=== PATIENT | female | born 1945 | race Caucasian/White ===

== ENCOUNTER 2016-07-27 14:32 | Inpatient (IN) | payer OTHER, MEDICARE ==
[~2016-07-27] VITALS: Ht 154.9 cm; Wt 65.3 kg
[~2016-07-27 14:32] MED LIST: BG MC; COL100 PO; DIL2 PO; DURAGESIC100 MCG/HR TOP; GABAPENTIN400 M1 PO; HEP5I SC; HYDROMORPHONE PO; LAC PO; LEVAQUIN750 MG PO; MAC100 PO; MAG PO; MIANS; NEURONTIN400 MG PO; PRI20 PO; ROB750 PO; RXMED TOP; TPN PER PHARMACY MC; VITAMIN D2 PO; ZITHROMAX Z-PA250 M2 PO; ZOFI IV; [UNRECOGNIZED DRUG - CODE] TOP
[2016-07-27] MEDS ORDERED: HYDROMORPHONE HC8 M1 PO (15:46)
[2016-07-27] MEDS ORDERED: GABAPENTIN400 M1 PO (15:46)
[2016-07-27] MEDS ORDERED: DURAGESIC100 MCG/HR TOP (15:47)
[2016-07-27 15:48] LABS: BASOPHIL % 2.2 % (0-2); PLATELET COUNT 159 x10^3mcL (130-400); RED CELL DISTRIBUTION WIDTH 17.3 % (11.5-14.5)
[2016-07-27 15:53] LABS: CALCIUM 8.2 mg/dL (8.5-10.1); CARBON DIOXIDE 29.1 mmol/L (21-32); CREATININE SERUM 1.2 mg/dL (0.6-1.0); POTASSIUM SERUM 3.3 mmol/L (3.5-5.1)
[2016-07-27 16:08] LABS: ALBUMIN 2.3 g/dL (3.4-5.0); BILIRUBIN TOTAL 0.6 mg/dL (0.20-1.00); MAGNESIUM 1.7 mg/dL (1.8-2.4); TOTAL PROTEIN, SERUM 5.9 g/dL (6.4-8.2)
[2016-07-27 16:13] LABS: UA SPECIFIC GRAVITY <=1.005 (1.005-1.035); microscopic required? YES; urine erythrocyte NEGATIVE (NEGATIVE)
[2016-07-27 16:38] LABS: CK-MB < 0.5 ng/mL (0-3.6); CREATINE KINASE 35 U/L (26-192)
[2016-07-27 17:38] VITALS: BP 112/63
[2016-07-27 17:47] LABS: PHOSPHOROUS 2.4 mg/dL (2.5-4.9)
[2016-07-27 17:48] LABS: CHOLESTEROL/HDL RATIO 2.7
[2016-07-27 17:58] LABS: FREE T4 1.14 ng/dL (0.76-1.46); FREE THYROXINE INDEX 2.3 ug/dL (1.4-4.5); T3 TOTAL 0.66 ng/mL; T4(THYROXINE) 6.7 ug/dL (4.7-13.3)
[2016-07-27 20:12] VITALS: BP 108/60
[2016-07-27 23:17] VITALS: BP 99/54
[2016-07-27 23:44] VITALS: BP 70/30
[2016-07-28] VITALS (7 sets, daily range): BP systolic 88–130; BP diastolic 53–74; Ht 154.9 cm; Wt 65.3 kg
[2016-07-28 04:55] LABS: RED BLOOD CELLS 2.5 M/mm3 (4.10-5.10)
[2016-07-28 04:56] LABS: BASOPHIL % 0.2 % (0-2)
[2016-07-28 04:57] LABS: PLATELET COUNT 105 x10^3mcL (130-400); RED CELL DISTRIBUTION WIDTH 17.3 % (11.5-14.5)
[2016-07-28 05:03] LABS: CALCIUM 6.6 mg/dL (8.5-10.1); CARBON DIOXIDE 23.6 mmol/L (21-32); CHLORIDE SERUM 107 mmol/L (98-107); CREATININE SERUM 0.9 mg/dL (0.6-1.0); GFR1 > 60 mL/min; GLUCOSE SERUM 87 mg/dL (74-106); IRON 7 ug/dL (50-170); MAGNESIUM 1.3 mg/dL (1.8-2.4); PHOSPHOROUS 2.1 mg/dL (2.5-4.9); POTASSIUM SERUM 3.7 mmol/L (3.5-5.1); SODIUM SERUM 139 mmol/L (136-145); TOTAL IRON BINDING CAPACITY 131 ug/dL (250-450)
[2016-07-28 05:20] LABS: rbc morphology (normal/abnorm) ABNORMAL (NORMAL); target cell (codocyte) 2+
[2016-07-29 03:02] VITALS: BP 89/52
[2016-07-29 05:26] LABS: BASOPHIL % 0.5 % (0-2); PLATELET COUNT 135 x10^3mcL (130-400)
[2016-07-29 05:33] LABS: RED CELL DISTRIBUTION WIDTH 17.9 % (11.5-14.5)
[2016-07-29 06:07] LABS: CALCIUM 7.9 mg/dL (8.5-10.1); CHLORIDE SERUM 106 mmol/L (98-107); CREATININE SERUM 0.9 mg/dL (0.6-1.0); GFR1 > 60 mL/min; GLUCOSE SERUM 98 mg/dL (74-106); PHOSPHOROUS 2.2 mg/dL (2.5-4.9); POTASSIUM SERUM 4.2 mmol/L (3.5-5.1); SODIUM SERUM 137 mmol/L (136-145)
[2016-07-29 07:20] VITALS: BP 110/67
[2016-07-29 11:15] VITALS: BP 125/74
[2016-07-29 18:20] VITALS: BP 128/58
[2016-07-29 20:40] VITALS: BP 134/75
[2016-07-30 06:12] VITALS: BP 102/54
[2016-07-30 09:49] VITALS: BP 123/66
[2016-07-30 11:29] LABS: PLATELET COUNT 179 x10^3mcL (130-400)
[2016-07-30 11:30] LABS: BASOPHIL % 0 % (0-2); RED CELL DISTRIBUTION WIDTH 17.8 % (11.5-14.5)
[2016-07-30 12:02] LABS: CALCIUM 8.2 mg/dL (8.5-10.1); CHLORIDE SERUM 106 mmol/L (98-107); CREATININE SERUM 0.9 mg/dL (0.6-1.0); GFR1 > 60 mL/min; GLUCOSE SERUM 103 mg/dL (74-106); POTASSIUM SERUM 4.4 mmol/L (3.5-5.1); SODIUM SERUM 138 mmol/L (136-145)
[2016-07-30 12:10] LABS: ALBUMIN 2.5 g/dL (3.4-5.0)
[2016-07-30 13:13] VITALS: BP 113/56
[2016-07-30] MEDS ORDERED: LEVAQUIN750 MG PO (16:50)
[2016-07-30] MEDS ORDERED: LAC PO (16:51)
[2016-07-30 17:13] VITALS: BP 113/56
== END 2016-07-30 19:50 | disposition home health service (06) | DRG 871 ==
LOC: ED 14:32 → MU 16:35 → IC 16:35 → DU 07-29 15:05 → MU 07-30 06:45
PROVIDERS: Emergency Medicine; Family Medicine; ADMIT Family Medicine
DX: A41.9 Sepsis, unspecified organism (principal); E43 Unspecified severe protein-calorie malnutrition; I50.43 Acute on chronic combined systolic (congestive) and diastolic (congestive) heart failure; R65.21 Severe sepsis with septic shock; N17.0 Acute kidney failure with tubular necrosis; L89.154 Pressure ulcer of sacral region, stage 4; N39.0 Urinary tract infection, site not specified; I89.0 Lymphedema, not elsewhere classified; G62.9 Polyneuropathy, unspecified; Z68.24 Body mass index [BMI] 24.0-24.9, adult; Z85.830 Personal history of malignant neoplasm of bone; Z85.41 Personal history of malignant neoplasm of cervix uteri; Z93.3 Colostomy status; Z93.6 Other artificial openings of urinary tract status; Z92.21 Personal history of antineoplastic chemotherapy; Z92.3 Personal history of irradiation; Z98.1 Arthrodesis status
CPT/HCPCS: 36600; 83880; 84439; 97110-GP; J1956; J3475; J3490; J7030; J7040; J7060; Q0092

== ENCOUNTER 2017-04-20 10:38 | Inpatient (IN) | payer OTHER, MEDICARE ==
[~2017-04-20] VITALS: Ht 162.6 cm; Wt 60.0 kg
[~2017-04-20 10:38] MED LIST changes: +HYDROMORPHONE HC8 M1 PO
[2017-04-20 10:46] VITALS: Ht 162.6 cm; Wt 60.0 kg
[2017-04-20 11:24] LABS: CALCIUM 9.1 mg/dL (8.5-10.1); CARBON DIOXIDE 26.1 mmol/L (21-32); CREATININE SERUM 1.1 mg/dL (0.6-1.0); POTASSIUM SERUM 3.7 mmol/L (3.5-5.1)
[2017-04-20 11:28] LABS: BILIRUBIN TOTAL 0.59 mg/dL (0.20-1.00); TOTAL PROTEIN, SERUM 6.9 g/dL (6.4-8.2)
[2017-04-20 11:29] LABS: ALBUMIN 3.2 g/dL (3.4-5.0); BASOPHIL % 0.1 % (0-2); PLATELET COUNT 138 x10^3mcL (130-400)
[2017-04-20 11:58] LABS: RED CELL DISTRIBUTION WIDTH 14.9 % (11.5-14.5)
[2017-04-20 13:31] LABS: UA SPECIFIC GRAVITY <=1.005 (1.005-1.035); microscopic required? YES; urine erythrocyte NEGATIVE (NEGATIVE)
[2017-04-20 14:29] VITALS: BP 79/37
[2017-04-20 14:45] VITALS: BP 84/46
[2017-04-20] MEDS ORDERED: NEURONTIN400 MG PO (15:24)
[2017-04-20 15:43] VITALS: BP 65/37
[2017-04-20 16:11] LABS: MAGNESIUM 1.6 mg/dL (1.8-2.4); PHOSPHOROUS 2.6 mg/dL (2.5-4.9)
[2017-04-20 16:19] LABS: CHOLESTEROL/HDL RATIO 2.6
[2017-04-20 17:25] LABS: T3 TOTAL 0.69 ng/mL
[2017-04-20 18:46] LABS: AMPHETAMINE QUAL UR NONE DETECTED (NEG <=1000)
[2017-04-20 19:24] LABS: FREE T4 1.06 ng/dL (0.76-1.46); FREE THYROXINE INDEX 3.1 ug/dL (1.4-4.5); T4(THYROXINE) 9.2 ug/dL (4.7-13.3)
[2017-04-20 20:00] VITALS: BP 88/56
[2017-04-21] VITALS: BP 106/64
[2017-04-21 04:00] VITALS: BP 107/60; BP 97/52
[2017-04-21 05:36] LABS: CARBON DIOXIDE 23.9 mmol/L (21-32); CREATININE SERUM 1.3 mg/dL (0.6-1.0); MAGNESIUM 2.3 mg/dL (1.8-2.4); PHOSPHOROUS 3.9 mg/dL (2.5-4.9); POTASSIUM SERUM 4.3 mmol/L (3.5-5.1)
[2017-04-21 05:44] LABS: BASOPHIL % 0 % (0-2); PLATELET COUNT 126 x10^3mcL (130-400); RED CELL DISTRIBUTION WIDTH 15.5 % (11.5-14.5)
[2017-04-21 08:00] VITALS: BP 120/67
[2017-04-21 12:01] VITALS: BP 103/63
[2017-04-21 18:49] VITALS: BP 120/65
[2017-04-21 22:22] VITALS: BP 101/54
[2017-04-22 06:26] VITALS: BP 115/64
[2017-04-22 06:26] LABS: BASOPHIL % 0.1 % (0-2)
[2017-04-22 06:29] LABS: PLATELET COUNT 126 x10^3mcL (130-400); RED CELL DISTRIBUTION WIDTH 15.5 % (11.5-14.5)
[2017-04-22 06:35] LABS: CALCIUM 7.8 mg/dL (8.5-10.1); CARBON DIOXIDE 21.4 mmol/L (21-32); CREATININE SERUM 1.1 mg/dL (0.6-1.0); MAGNESIUM 2.1 mg/dL (1.8-2.4); PHOSPHOROUS 2.3 mg/dL (2.5-4.9); POTASSIUM SERUM 3.5 mmol/L (3.5-5.1)
[2017-04-22 10:03] VITALS: BP 122/71
[2017-04-22 14:28] VITALS: BP 120/59
[2017-04-22 18:28] VITALS: BP 139/80
[2017-04-22 21:24] VITALS: BP 121/66
[2017-04-23 05:08] VITALS: BP 110/60
[2017-04-23 07:36] LABS: BASOPHIL % 0.3 % (0-2); PLATELET COUNT 143 x10^3mcL (130-400)
[2017-04-23 07:41] LABS: rbc morphology (normal/abnorm) ABNORMAL (NORMAL)
[2017-04-23 07:52] LABS: CALCIUM 7.8 mg/dL (8.5-10.1); CARBON DIOXIDE 18.4 mmol/L (21-32); MAGNESIUM 1.8 mg/dL (1.8-2.4); PHOSPHOROUS 2.8 mg/dL (2.5-4.9); POTASSIUM SERUM 3.4 mmol/L (3.5-5.1)
[2017-04-23 09:35] VITALS: BP 131/67
[2017-04-23 12:27] VITALS: BP 133/73
[2017-04-23 13:06] LABS: BASOPHIL % 0.2 % (0-2); PLATELET COUNT 163 x10^3mcL (130-400); RED CELL DISTRIBUTION WIDTH 15.3 % (11.5-14.5)
[2017-04-23 16:56] VITALS: BP 152/80
[2017-04-23 21:02] VITALS: BP 149/83
[2017-04-24 05:48] VITALS: BP 141/77
[2017-04-24 09:49] LABS: BASOPHIL % 0.2 % (0-2); PLATELET COUNT 197 x10^3mcL (130-400); RED CELL DISTRIBUTION WIDTH 15.5 % (11.5-14.5)
[2017-04-24 09:56] LABS: CALCIUM 8.2 mg/dL (8.5-10.1); CARBON DIOXIDE 17.1 mmol/L (21-32); CREATININE SERUM 1.3 mg/dL (0.6-1.0); MAGNESIUM 1.7 mg/dL (1.8-2.4); PHOSPHOROUS 3.6 mg/dL (2.5-4.9)
[2017-04-24 10:21] VITALS: BP 136/76
[2017-04-24 14:31] VITALS: BP 151/85
[2017-04-24 17:02] VITALS: BP 141/75
[2017-04-24] MEDS ORDERED: HEP5I IV (17:12)
[2017-04-24] MEDS ORDERED: COU10 PO (17:14)
[2017-04-24] MEDS ORDERED: DIL2 PO (17:14)
[2017-04-24 17:57] VITALS: BP 141/75
== END 2017-04-24 20:03 | DRG 871 ==
LOC: ED 10:38 → IC 12:35 → DU 12:35 → IC 16:23 → DU 04-21 19:36
PROVIDERS: Emergency Medicine; Family Medicine; Student in an Organized Health Care Education/Training Program
DX: A41.89 Other specified sepsis (principal); R65.21 Severe sepsis with septic shock; N17.0 Acute kidney failure with tubular necrosis; N39.0 Urinary tract infection, site not specified; L03.115 Cellulitis of right lower limb; I82.412 Acute embolism and thrombosis of left femoral vein; Z98.1 Arthrodesis status; Z85.41 Personal history of malignant neoplasm of cervix uteri; Z85.830 Personal history of malignant neoplasm of bone; Z93.6 Other artificial openings of urinary tract status; Z93.3 Colostomy status; Z68.23 Body mass index [BMI] 23.0-23.9, adult
CPT/HCPCS: 83880; 84439; 87804; 97110-GP; J0696; J1644; J1885; J1956; J2060; J2543; J3010; J3370; J3475; J3490; J7030; J7050; P9016; Q0092; Q0163

== ENCOUNTER 2017-05-13 10:04 | Emergency (ER) | payer OTHER, MEDICARE ==
[~2017-05-13] VITALS: Ht 157.5 cm; Wt 56.2 kg
[~2017-05-13 10:04] MED LIST changes: +COU10 PO; +HEP5I IV
[2017-05-13 10:28] VITALS: Ht 157.5 cm; Wt 56.2 kg
[2017-05-13 11:30] LABS: PLATELET COUNT 155 x10^3mcL (130-400)
[2017-05-13 11:40] LABS: RED CELL DISTRIBUTION WIDTH 14.7 % (11.5-14.5)
[2017-05-13 14:02] VITALS: BP 137/84
== END 2017-05-13 14:02 | disposition home or self-care (01) ==
LOC: ED 10:04
PROVIDERS: Emergency Medicine
DX: I82.412 Acute embolism and thrombosis of left femoral vein (principal); G62.9 Polyneuropathy, unspecified; Z85.41 Personal history of malignant neoplasm of cervix uteri; Z85.830 Personal history of malignant neoplasm of bone
CPT/HCPCS: 36415; 83880; Q0092

== ENCOUNTER 2018-06-04 19:45 | Emergency (ER) | payer OTHER, MEDICARE ==
[~2018-06-04] VITALS: Ht 157.5 cm; Wt 56.7 kg
[2018-06-04 20:37] VITALS: Ht 157.5 cm; Wt 56.7 kg
[2018-06-04 22:00] VITALS: BP 136/82
== END 2018-06-04 22:00 | disposition home or self-care (01) ==
LOC: ED 19:45
DX: S52.571A Other intraarticular fracture of lower end of right radius, initial encounter for closed fracture (principal); W01.0XXA Fall on same level from slipping, tripping and stumbling without subsequent striking against object, initial encounter; Y93.89 Activity, other specified; Y92.89 Other specified places as the place of occurrence of the external cause; Y99.8 Other external cause status
CPT/HCPCS: J3010